=== PATIENT | male | born 1930 | race Caucasian/White ===

== ENCOUNTER → 2017-08-13 | Outpatient (CLI) | payer MEDICARE ==
[~2017-08-13] MED LIST: APAP/OXYCODONE1 TA2 PO; ASPIRIN80 MG PO; ASPIRIN81 M1 PO; ASPIRIN81 MG PO; CARBIDOPA & LEV1 TAB PO; CARDIZEM120 MG PO; CLARITIN10 MG PO; CYCLOBENZAPRINE10 MG PO; DAYPRO600 M1 PO; DOCUSATE SODIU100 MG PO; ECOTRIN325 MG PO; FLOMAX0.4 MG PO; LIPITOR10 MG; LOVENOX30 MG/0.3 SC; Lovenox40 MG/0.4 SC; MEDROL DOSEPAK4 MG PO; MULTIVITAMIN1 CTB PO; PERCOCET 325 MG1 TA6 PO; PRAVACHOL40 MG PO; PRILOSEC20 MG PO
== END | disposition home or self-care (01) ==
LOC: CARD 14:30
DX: I08.0 Rheumatic disorders of both mitral and aortic valves (principal); I10 Essential (primary) hypertension

== ENCOUNTER 2018-01-11 13:47 | Inpatient (IN) | payer MEDICARE ==
[~2018-01-11] VITALS: Ht 177.8 cm; Wt 76.5 kg
[2018-01-11 13:57] VITALS: BP 154/75
[2018-01-11 14:02] LABS: BASO % 0.5 % (0.0-1.0); EOS # 0.3 10*3/uL (0.0-0.4); EOS % 3.1 % (1.0-4.0); HEMATOCRIT 40.7 % (42.0-52.0); HEMOGLOBIN 13.3 g/dl (14.0-18.0); LYMPH # 3.2 10*3/uL (1.3-4.4); LYMPH % 37.8 % (27.0-41.0); MEAN CELL VOLUME 100.5 fl (80.0-94.0); MEAN CORPUSCULAR HGB 32.8 pg (27.0-31.0); MEAN CORPUSCULAR HGB CONC 32.7 g/dl (33.0-37.0); MEAN PLATELET VOLUME 10.9 fl (9.6-12.3); MONO # 0.6 10*3/uL (0.1-1.0); MONO % 7.7 % (3.0-9.0); NEUT # 4.2 10*3/uL (2.3-7.9); NEUT % 50.7 % (47.0-73.0); PLATELET COUNT AUTOMATED 184 10*3/uL (130-400); RED BLOOD COUNT 4.05 10*6/uL (4.50-5.90); RED CELL DISTRI WIDTH 12.4 % (0-14.5); WHITE BLOOD COUNT 8.4 10*3/uL (4.8-10.8)
[2018-01-11] MEDS ORDERED: ASPIR LOW81 MG PO (14:08)
[2018-01-11 14:19] VITALS: BP 140/63
[2018-01-11 14:19] LABS: ALKALINE PHOSPHATASE 99 U/L (45-117); BUN 15 mg/dl (7-24); CHLORIDE 103 mmol/L (98-107); CREATININE 1.12 mg/dL (0.70-1.30); POTASSIUM 4.3 mmol/L (3.5-5.1); SGOT/AST 19 IU/L (3-35); SGPT/ALT 20 U/L (12-78); SODIUM 139 mmol/L (136-145); TOTAL PROTEIN 7.5 gm/dL (6.4-8.2)
[2018-01-11 14:20] LABS: ACT PARTIAL THROMBO TIME 21.9 SECONDS (20.8-31.5)
[2018-01-11 14:22] LABS: TROPONIN I < 0.015 ng/ml (<0.045)
[2018-01-11 14:36] VITALS: BP 159/62
[2018-01-11 15:12] VITALS: BP 145/70
[2018-01-11 20:00] VITALS: BP 110/48
[2018-01-12] VITALS: BP 100/40
[2018-01-12 06:21] LABS: BASO % 0.4 % (0.0-1.0); EOS # 0.3 10*3/uL (0.0-0.4); EOS % 4.1 % (1.0-4.0); HEMATOCRIT 36.2 % (42.0-52.0); HEMOGLOBIN 11.7 g/dl (14.0-18.0); LYMPH # 2.4 10*3/uL (1.3-4.4); LYMPH % 32.8 % (27.0-41.0); MEAN CELL VOLUME 100.3 fl (80.0-94.0); MEAN CORPUSCULAR HGB 32.4 pg (27.0-31.0); MEAN CORPUSCULAR HGB CONC 32.3 g/dl (33.0-37.0); MEAN PLATELET VOLUME 10.7 fl (9.6-12.3); MONO # 0.7 10*3/uL (0.1-1.0); NEUT # 3.9 10*3/uL (2.3-7.9); NEUT % 53.4 % (47.0-73.0); PLATELET COUNT AUTOMATED 151 10*3/uL (130-400); RED BLOOD COUNT 3.61 10*6/uL (4.50-5.90); RED CELL DISTRI WIDTH 12.5 % (0-14.5); WHITE BLOOD COUNT 7.3 10*3/uL (4.8-10.8)
[2018-01-12 06:46] LABS: BUN 14 mg/dl (7-24); CHLORIDE 106 mmol/L (98-107); CHOLESTEROL 123 mg/dL (<200); CREATININE 0.95 mg/dL (0.70-1.30); HDL CHOLESTEROL 52 mg/dl (40-60); LDL CHOLESTEROL 60 mg/dL (9-159); SODIUM 143 mmol/L (136-145); TRIGLYCERIDES 57 mg/dl (<150); VLDL CHOLESTEROL 11 mg/dL (6-40)
[2018-01-12 07:06] LABS: VITAMIN D, 25-HYDROXY 27.5 ng/mL (30-100)
[2018-01-12 08:00] VITALS: BP 133/54
[2018-01-12] MEDS ORDERED: VITAMIN D400 UNI1 PO (10:17)
== END 2018-01-12 10:50 | disposition home or self-care (01) | DRG 392 ==
LOC: ED 13:47 → 4E 14:27 → EDHOLD 14:27 → 4E 14:50
PROVIDERS: Internal Medicine Nephrology; Nurse Practitioner Family
DX: K21.9 Gastro-esophageal reflux disease without esophagitis (principal); D53.9 Nutritional anemia, unspecified; R07.89 Other chest pain; I10 Essential (primary) hypertension; R73.9 Hyperglycemia, unspecified; E78.5 Hyperlipidemia, unspecified; N40.1 Benign prostatic hyperplasia with lower urinary tract symptoms; R35.0 Frequency of micturition; G25.81 Restless legs syndrome; Z79.82 Long term (current) use of aspirin; Z79.899 Other long term (current) drug therapy